=== PATIENT | male | born 1950 | race Caucasian/White ===

== ENCOUNTER 2024-02-07 13:00 | Outpatient (CLI) | payer MEDICARE, SELFPAY | END 2024-02-07 13:01 | disposition home or self-care (01) | LOC: AMB 02-13 08:32 | PROVIDERS: PCP Family Medicine; Visit Provider Emergency Medicine | DX: I49.9 Cardiac arrhythmia, unspecified (principal); I48.91 Unspecified atrial fibrillation | CPT/HCPCS: A0425; A0427 ==